=== PATIENT | male | born 1955 | race Hispanic/Latino ===

== ENCOUNTER 2020-12-23 07:25 | Day surgery (SDC) | payer OTHER ==
--- NOTE | 2020-12-21 13:14 | EKG ---
Test Date: 2020-12-20 Test Time: 12:22:14 Machine Chocolate Molder: STEVEN MEASUREMENT RESULTS: Intervals: Rate: 69 PA: 206 QRSD: 144 QT: 404 QTc: 432 [place]: P: 29 PA: 206 QRS: 90 T: 46 INTERPRETIVE STATEMENTS: Normal sinus rhythm Right bundle branch block Abnormal ECG No previous ECG available for comparison Electronically Signed On 12-21-20 13:10:40 CDT by Juan A Walker
[2020-12-23] MEDS ORDERED: NA CHLORIDE 0.9% 1,000 ML ONE ×2 (07:44→10:16)
[2020-12-23] MEDS ORDERED: OXYMETAZOLINE HCL 0.05% 15ML NAS ONE ×3 (07:44→10:36)
[2020-12-23] MEDS ORDERED: NA CHLORIDE 0.9% 500 ML ONE (08:15)
[2020-12-23] MEDS ORDERED: LIDOCAINE 1% W/EPI 1:100,000 MDV 20 ML VIAL ONE (08:15)
[2020-12-23] MEDS ORDERED: propofoL 200 MG/20 ML VIAL IV ONE (08:16)
[2020-12-23] MEDS ORDERED: GLYCOPYRROLATE 0.2 MG/ML SYR ONE ×2 (08:17)
[2020-12-23] MEDS ORDERED: LIDOCAINE 2% MPF 5 ML VIAL ONE (08:17)
[2020-12-23] MEDS ORDERED: MIDAZOLAM HCL 2 MG/2 ML INJ ONE (08:17)
[2020-12-23] MEDS ORDERED: FENTANYL CITR 250 MCG/5 ML ONE (08:18)
[2020-12-23] MEDS ORDERED: ROCURONIUM 50 MG/5 ML VIAL IV ONE (08:18)
[2020-12-23] MEDS ORDERED: ONDANSETRON 4 MG/2 ML VIAL ONE (08:23)
[2020-12-23] MEDS ORDERED: dexAMETHasone 10 MG/ML VIAL ONE (08:24)
[2020-12-23 08:27] VITALS: O2SAT 100
[2020-12-23] MEDS ORDERED: LIDOCAINE 1% MPF 5 ML VIAL ONE (12:25)
--- NOTE | 2020-12-23 12:44 | P.BOP ---
Preoperative diagnosis: Chronic ethmoid, maxillary and frontal sinusitis, septal deviation Postoperative diagnosis: same Primary procedure: septoplasty Secondary procedure: NE with B max, ethmoid, and right frontal BSP Grinding Wheel Dresser: NONE,NONE Estimated blood loss: 300ml Specimen: sinonasal trimmings Findings: diffuse and profuse oozing Anesthesia: General Implants: surgicel to B ethmoid, FloSeal to B ethmoid Fluids & blood products: 1500ml crystalloid Transferred to: Recovery Room Condition: Good
[2020-12-23] MEDS ORDERED: TRAMADOL HCL 50 MG TAB ONE (14:17)
[2020-12-23 15:14] VITALS: BP 160/89; TEMP 96.6
--- NOTE | 2020-12-23 16:26 | OP ---
Date of Procedure: 12/23/2020 Surgeon: Renuka Wen MD Preoperative Diagnoses: Chronic maxillary and ethmoid sinusitis, septal deviation, nasal obstruction , and severe headache. Postoperative Diagnoses: Chronic maxillary and ethmoid sinusitis, septal deviation, nasal obstructio n, and severe headache, greater than average bleeding. Indication For Procedure: Mr. Lester presented in 2019 with symptoms of chronic sinusitis. We disc ussed treatment options and he desired surgery, but his treatment was delayed due to the COVID pandem ic. He re-presented with severe right-sided headache. His sedimentation rate was within normal limi ts. We discussed that treatment for his nasal and sinus conditions was likely to rule out the sinuse s as a contributing factor, but it was unclear whether his pain was due to his sinuses or to other co morbid conditions. Description Of Procedure: The patient was brought to the operating room. He was placed under genera l anesthesia via oral endotracheal tube. The head of bed was turned 90 degrees. The [employer] system was loaded with patient's preoperative CT scan and registered according to fitness and wellness director in structions. The accuracy of the navigation was confirmed and was felt to be very good. The nasal ca vity was packed with Afrin-soaked pledgets. After time for effect, these were removed and the 0-degr ee endoscope used to perform a nasal endoscopy. The left middle turbinate was medialized and the unc inate process was removed using a backbiter and 90-degree Blakesley. The mucosa was significantly oo zy with greater than expected degree of bleeding. Afrin-soaked pledgets were packed in this area for several minutes to aid in hemostasis. Nasal endoscopy was performed on the right side, but the nasa l cavity was too narrow due to the degree of the septal deviation to allow for concurrent dissection. The pledgets were then removed from the left side and the maxillary antrostomy was created and dila daniel to put pressure on the mucosa and aid in control of bleeding. The ethmoid cells were then judici ously dissected using a curette and bony partitions were removed using a 45-degree Blakesley. The [employer] navigation pointer was used to confirm entry and dissection of the opacified cells noted on h is pretreatment CT scan. Afrin-soaked pledgets were packed into the ethmoid cavity to control bleedi ng and attention was turned to the septum. Using a headlight and nasal speculum, the septum was inje cted with 1% lidocaine with epinephrine. A left hemitransfixion incision was made and bilateral muco bety flaps were elevated. There was significant spurring on the right side resulting in a laceration of the mucosa. The bony and cartilaginous deviation were removed using heavy scissors, Elizabeth for ceps, and the Arik rongeur. The removed cartilage was carefully trimmed to a small flat portion fo r later placement between the septal flap. Once the septum was adequately repaired, attention was tu rned to the right side. The balloon dilation device was prepared in accordance with fitness and wellness director's i nstructions and directed through the right middle meatus through the frontal recess. Placement was c onfirmed by brilliant illumination of the recess and the frontal recess was dilated to provide compre ssion on the mucosa as well as aid in further dissection. The uncinate process was then removed. Th e maxillary antrostomy created using the 90-degree Blakesley backbiter and visualization under 30-deg ree endoscope. There was significant oozing from the right side as well, requiring intermittent pack ing with Afrin-soaked pledgets to aid in hemostasis. The ethmoid cells were carefully dissected and opened. The navigation suction was used to confirm entry into the opacified portions. Formal dissec tion of the frontal recess was not able to be performed due to the overall degree and profuse nature of the patient's oozing. Afrin-soaked packing was placed within the right ethmoid cavity and attenti on was turned back to the septum. The septal flaps were reapproximated using a running plain gut sut ure with a small piece of Surgicel placed between the septal flaps as it turns against further bleedi ng. All pledgets were removed. The count was confirmed as correct. The right ethmoid cavity was fi lled with 5 mL of FloSeal as a hemostatic agent. The left ethmoid cavity was packed with Surgicel an d then filled with FloSeal as a hemostatic agent. A decision was made to forego placement of Acosta s plints in interest of patient's comfort. The oropharynx was carefully examined using a headlight and a sweetheart retractor and there was no significant blood noted within the oropharynx or flowing fro m the nasopharynx. Overall, this procedure was significantly more difficult than expected and averag e. The anticipated duration of procedure was 2 hours, but due to the degree of bleeding, need for in termittent packing and additional interventions for control of bleeding, the duration exceeded 3-1/2 hours. Full dissection of the ethmoid was deferred in interest of limiting additional blood loss and avoidance of complications. DARREN/CHANDRIKA Voice ID: [id number] Report ID: [id number]
== END 2020-12-23 15:25 | disposition home or self-care (01) ==
LOC: OR 07:25
PROVIDERS: ATTEND Otolaryngology
PROC: 099R8ZZ Drainage of Left Maxillary Sinus, Via Natural or Artificial Opening Endoscopic (ICD-10-PCS; 2020-12-23)
PROC: 099Q8ZZ Drainage of Right Maxillary Sinus, Via Natural or Artificial Opening Endoscopic (ICD-10-PCS; 2020-12-23)
PROC: 09QS4ZZ Repair Right Frontal Sinus, Percutaneous Endoscopic Approach (ICD-10-PCS; 2020-12-23)
PROC: 09BM8ZZ Excision of Nasal Septum, Via Natural or Artificial Opening Endoscopic (ICD-10-PCS; principal; 2020-12-23 09:15)
DX: J32.0 Chronic maxillary sinusitis (principal); J32.2 Chronic ethmoidal sinusitis; J34.2 Deviated nasal septum; J34.89 Other specified disorders of nose and nasal sinuses; R51.9 Headache, unspecified; Z20.822 Contact with and (suspected) exposure to COVID-19
CPT/HCPCS: 30520; 31256; 31296; 93005; 82947 ×2; 88305; 88311; U0002; J2704; J2250; J3010; J7040; J7030 ×2; J2405; J1100

== ENCOUNTER 2020-12-30 19:19 | Observation (INO) | payer OTHER ==
[2020-12-30] MEDS ORDERED: NA CHLORIDE 0.9% 1,000 ML ONE ×2 (19:49→22:06)
[2020-12-30] MEDS ORDERED: TRANEXAMIC ACID 1,000 MG/10 ML VIAL IV ONE ×2 (19:59→20:07)
[2020-12-30 20:01] LABS: Absolute Lymphocytes (CBC) 3.2 K/uL (0.7-4.9); Basophils % 0.9 % (0-1.3); Hematocrit 42.1 % (39.6-49.0); Lymphocytes % 29.4 % (15.3-44.8); MPV 8.4 fL (7.6-11.3)
[2020-12-30] MEDS ORDERED: NA CHLORIDE 0.9% 50 ML ONE (20:10)
[2020-12-30] MEDS ORDERED: NA CHLORIDE 0.9% 250 ML ONE (20:15)
[2020-12-30 20:16] LABS: Potassium 4.3 mmol/L (3.5-5.1)
[2020-12-30] MEDS ORDERED: ONDANSETRON 4 MG/2 ML VIAL ONE (20:22)
[2020-12-30 20:34] LABS: Protime INR 1.09
--- NOTE | 2020-12-30 20:38 | EDPHYS ---
Physician Documentation [facility] Name: Robert Lester Jr Age: 65 yrs Sex: Male : 1955 Arrival Date: 12/30/2020 Time: 19:22 Bed 2 Private MD: ED Physician Arnold Gregory HPI: 12/30 19:46 This 65 yrs old Male presents to ER via Ambulatory with complaints of Post pkl Surgical Bleeding. 19:46 The patient presents with a nose bleed. Onset: The symptoms/episode began/occurred just pkl prior to arrival, 1 hour(s) ago. Patient had nose surgery [address] Wen. Nose started bleeding 1 hour ago.. Historical: - Allergies: 19:44 PENICILLINS; lp1 19:44 Keflex; lp1 - Home Meds: 19:44 Altace Oral [Active]; Trulicity subcutaneous [Active]; Humulin R Sub-Q [Active]; lp1 - PMHx: 19:44 Diabetes mellitus; Hypertensive disorder; lp1 - PSHx: 19:44 Sinus surgery; lp1 - Immunization history:: Adult Immunizations up to date. - Social history:: Smoking status: Patient denies any tobacco usage or history of. ROS: 19:46 Eyes: Negative for injury, pain, redness, and discharge. pkl 19:46 ENT: Positive for nose bleed. 19:46 Neck: Negative for stiffness. 19:46 Cardiovascular: Negative for chest pain. 19:46 Respiratory: Negative for cough, shortness of breath. 19:46 Abdomen/GI: Negative for abdominal pain, nausea, vomiting, and diarrhea. 19:46 Back: Negative for acute changes. 19:46 : Negative for urinary symptoms. 19:46 MS/extremity: Negative for acute changes. 19:46 Skin: Negative for rash. 19:46 Neuro: Negative for altered mental status, loss of consciousness. Exam: 19:46 Head/Face: Normocephalic, atraumatic. Eyes: Pupils equal round and reactive to light, pkl extra-ocular motions intact. Lids and lashes normal. Conjunctiva and sclera are non-icteric and not injected. Cornea within normal limits. Periorbital areas with no swelling, redness, or edema. 19:46 ENT: Nose: bleeding, is seen from the left nare, clotted blood, in left nare, Mouth: bleeding noted back of throat. 19:46 Neck: Exam negative for acute changes. 19:46 Chest/axilla: Exam negative for acute changes. 19:46 Cardiovascular: Rate: tachycardic, actual rate is 130 bpm, Rhythm: regular. 19:46 Respiratory: the patient does not display signs of respiratory distress, Respirations: normal, Breath sounds: are clear throughout. 19:46 Abdomen/GI: Bowel sounds: normal, Palpation: abdomen is soft and non-tender, in all quadrants. 19:46 Back: Exam negative for acute changes. 19:46 : Exam negative for acute changes. 19:46 Musculoskeletal/extremity: Exam is negative for acute changes. 19:46 Skin: Exam negative for rash. 19:46 Neuro: Orientation: is normal, Mentation: is normal, Cranial nerves: grossly normal, Motor: is normal. Vital Signs: 19:20 BP 121 / 102; Pulse 130; Resp 20; Temp 97.6(TE); Pulse Ox 97% on R/A; Weight 108.86 kg lp1 (R); Height 5 ft. 11 in. (180.34 cm); Pain 0/10; 19:55 BP 122 / 89; Pulse 115; Resp 20; Pulse Ox 97% on R/A; tw5 19:20 Body Mass Index 33.47 (108.86 kg, 180.34 cm) lp1 MDM: 19:31 Patient medically screened. pkl 20:35 Data reviewed: vital signs, nurses notes, lab test result(s). pkl 12/30 19:45 Order name: CBC with Diff; Complete Time: 20:03 pkl 12/30 19:45 Order name: Chem 7; Complete Time: 20:33 pkl 12/30 20:05 Order name: PT-INR pkl 12/30 20:05 Order name: Ptt, Activated pkl 12/30 20:06 Order name: Protime (+INR); Complete Time: 23:34 EDMS 12/30 20:06 Order name: PTT, Activated Partial Thromb; Complete Time: 23:34 EDMS 12/30 20:09 Order name: Type and Screen Tube method; Complete Time: 23:34 EDMS 12/30 20:45 Order name: Basic Metabolic Panel EDMS 12/30 20:45 Order name: Basic Metabolic Panel EDMS 12/30 20:45 Order name: CBC with Automated Diff EDMS 12/30 20:45 Order name: CBC with Automated Diff EDMS Administered Medications: 19:54 Drug: NS 0.9% 1000 ml Route: IV; Rate: 125 ml/hr; Site: left hand; tw5 19:55 Drug: NS 0.9% 500 ml Route: IV; Rate: bolus; Site: left hand; tw5 20:30 Follow up: IV Status: Completed infusion; IV Intake: 500ml em 20:13 Drug: Tranexamic Acid 1000 mg Route: IV; Rate: calculated rate; Site: left hand; em 20:23 Drug: Tranexamic Acid 1000 mg Route: IV; Rate: calculated rate; Site: left hand; em 20:27 Drug: Zofran (Ondansetron) 4 mg Route: IVP; Site: left hand; em Disposition Summary: 12/30/20 20:37 Hospitalization Ordered Hospitalization Status: Observation pkl Provider: Renuka Wen pkl Location: Telemetry/MedSurg (observation) pkl Condition: Stable pkl Problem: new pkl Symptoms: are unchanged pkl Bed/Room Type: Standard pkl Room Assignment: 222(12/30/20 21:15) Diagnosis - Nose bleed. S/P Sinus surgery pkl Forms: - Medication Reconciliation Form pkl - SBAR form pkl Signatures: Dispatcher [employer] EDArnold Martin MD MD pkl Timoteo Lam RN RN Maya Mcnulty RN RN [facility] Ginny Andres RN RN Alem Vallejo tw5 Corrections: (The following items were deleted from the chart) 20: 19:45 TYPE AND SCREEN+BB.LAB.BRZ ordered. EDOH EDMS 21:15 20:37 pkl cg
--- NOTE | 2020-12-30 20:38 | ER ---
Nurse's Notes [facility] Name: Robert Lester Jr Age: 65 yrs Sex: Male : 1955 Arrival Date: 12/30/2020 Time: 19:22 Bed 2 Private MD: Diagnosis: Nose bleed. S/P Sinus surgery Presentation: 12/30 19:20 Chief complaint: Patient states: Had sinus surgery by Dr. Wen on 12/23/2020. Reports lp1 an hour ago began having nose bleed from both nares and has not stopped. 19:20 Coronavirus screen: At this time, the client does not indicate any symptoms associated lp1 with coronavirus-19. Ebola Screen: No symptoms or risks identified at this time. Initial Sepsis Screen: Does the patient meet any 2 criteria? HR > 90 bpm. Does the patient have a suspected source of infection? No. Patient's initial sepsis screen is negative. Risk Assessment: Do you want to hurt yourself or someone else? Patient reports no desire to harm self or others. Onset of symptoms was December 30, 2020 at 18:00. 19:20 Method Of Arrival: Ambulatory lp1 19:20 Acuity: SHADIA 2 lp1 21:16 Note report given to surgery. Pt transported by bed to surgery. df1 Triage Assessment: 19:25 EENT: Nares with bleeding noted on left. lp1 Historical: - Allergies: 19:44 PENICILLINS; lp1 19:44 Keflex; lp1 - Home Meds: 19:44 Altace Oral [Active]; Trulicity subcutaneous [Active]; Humulin R Sub-Q [Active]; lp1 - PMHx: 19:44 Diabetes mellitus; Hypertensive disorder; lp1 - PSHx: 19:44 Sinus surgery; lp1 - Immunization history:: Adult Immunizations up to date. - Social history:: Smoking status: Patient denies any tobacco usage or history of. Screenin:46 Abuse screen: Denies threats or abuse. Denies injuries from another. Nutritional lp1 screening: No deficits noted. Tuberculosis screening: No symptoms or risk factors identified. Fall Risk None identified. Assessment: 19:46 General:. General: Reports Patient states that he had a procedure on his nose earlier tw5 this week, was suppose to go to a follow up appointment, but missed it. About an hour ago he started bleeding from his nose and it hasn't stopped. Patient currently holding a washcloth to his nose to stop the bleeding. Nose is currently to swollen to place a clamp on. 20:25 Reassessment: DR. Wen at bedside applying manual pressure to both nares, pt given em medication to help stop nose bleed, no change in condition, pt will be going to the OR, team will be called out, warehouse and receiving supervisor notified. Vital Signs: 19:20 BP 121 / 102; Pulse 130; Resp 20; Temp 97.6(TE); Pulse Ox 97% on R/A; Weight 108.86 kg lp1 (R); Height 5 ft. 11 in. (180.34 cm); Pain 0/10; 19:55 BP 122 / 89; Pulse 115; Resp 20; Pulse Ox 97% on R/A; tw5 19:20 Body Mass Index 33.47 (108.86 kg, 180.34 cm) lp1 ED Course: 19:22 Patient arrived in ED. bp1 19:31 Arnold Gregory MD is Attending Physician. pkl 19:44 Triage completed. lp1 19:44 Arm band placed on. lp1 19:46 Alem Vallejo is Primary Nurse. tw5 19:46 Resting quietly. Awaiting lab results, Awaiting private physician. tw5 19:46 Patient has correct armband on for positive identification. lp1 19:46 Initial lab(s) drawn, by ED staff, sent to lab. T\T\S collected, blood band applied to tw5 patient. Inserted saline lock: 20 gauge in right hand, using aseptic technique. Blood collected. 19:49 Chem 7 Sent. tw5 19:49 CBC with Diff Sent. tw5 20:25 Assist provider with nosebleed control using direct pressure, Bleeding from left nare. em Set up for procedure. Performed by Renuka Wen MD Bleeding continues Patient tolerated well. 20:36 Renuka Wen MD is Hospitalizing Provider. pkl Administered Medications: 19:54 Drug: NS 0.9% 1000 ml Route: IV; Rate: 125 ml/hr; Site: left hand; tw5 19:55 Drug: NS 0.9% 500 ml Route: IV; Rate: bolus; Site: left hand; tw5 20:30 Follow up: IV Status: Completed infusion; IV Intake: 500ml em 20:13 Drug: Tranexamic Acid 1000 mg Route: IV; Rate: calculated rate; Site: left hand; em 20:23 Drug: Tranexamic Acid 1000 mg Route: IV; Rate: calculated rate; Site: left hand; em 20:27 Drug: Zofran (Ondansetron) 4 mg Route: IVP; Site: left hand; em Intake: 20:30 IV: 500ml; Total: 500ml. em Outcome: 20:37 Decision to Hospitalize by Provider. pkl 21:17 Patient left the ED. df1 Signatures: Arnold Gregory MD MD pkl Timoteo Lam RN RN em Maya Mcnulty RN RN lp1 Yoanna Butt Dawn df1 Alem Vallejo tw5 Corrections: (The following items were deleted from the chart) 19:54 19:54 NS 0.9% 1000 ml IV at 125 ml/hr in right hand tw5 tw5 20:09 19:49 TYPE AND SCREEN+BB.LAB.BRZ drawn and sent. tw5 EDMS
[2020-12-30] MEDS: NA CHLORIDE 0.9% 1,000 ML IV SCH (21:00)
[2020-12-30] MEDS ORDERED: SUCCINYLCHOLINE 20 MG/ML (10 ML) IV ONE (21:20)
[2020-12-30] MEDS ORDERED: LIDOCAINE 1% W/EPI 1:100,000 10 ML VIAL ONE (21:45)
[2020-12-30] MEDS ORDERED: OXYMETAZOLINE HCL 0.05% 15ML NAS ONE (21:45)
[2020-12-30] MEDS ORDERED: EPINEPHRINE/PF 1 MG/ML AMP ONE (21:45)
[2020-12-30] MEDS ORDERED: propofoL 200 MG/20 ML VIAL IV ONE (22:19)
[2020-12-30] MEDS ORDERED: FENTANYL CITR 100 MCG/2 ML ONE (22:19)
[2020-12-30] MEDS ORDERED: ROCURONIUM 50 MG/5 ML VIAL IV ONE ×2 (22:19→23:20)
[2020-12-30] MEDS ORDERED: MIDAZOLAM HCL 2 MG/2 ML INJ ONE (22:19)
[2020-12-30] MEDS ORDERED: Phenylephrine HCl 10 MG/ML 1 ML VIAL ONE (23:48)
[2020-12-31] MEDS ORDERED: NEOSTIGMINE 1 MG/ML -5 ML ONE (00:06)
[2020-12-31] MEDS ORDERED: GLYCOPYRROLATE 0.2 MG/ML SYR ONE (00:06)
[2020-12-31] MEDS ORDERED: ONDANSETRON 4 MG/2 ML VIAL IV PRN (00:21)
[2020-12-31] MEDS ORDERED: ACETAMINOPHEN 500 MG TAB PO PRN (00:21)
[2020-12-31] MEDS ORDERED: D50W 25 GM/50 ML SYRINGE IV PRN (00:21)
[2020-12-31] MEDS ORDERED: GLUCAGON 1 MG/VIAL IM PRN (00:21)
--- NOTE | 2020-12-31 00:30 | P.BOP ---
Preoperative diagnosis: epistaxis Postoperative diagnosis: same Primary procedure: NE with control of nasal bleeding Beef Breaker: NONE,NONE Estimated blood loss: 30ml Specimen: none Findings: thick clot in L NC, MM, HARNESS INSPECTOR. Cautery of L SPA region Anesthesia: General Complications: None Implants: left ethmoid surgicel, B NC Xerogel Fluids & blood products: crystalloid 1L Transferred to: Recovery Room Condition: Good
[2020-12-31 01:17] VITALS: BMI 33.4
[2020-12-31 02:10] VITALS: O2SAT 98
[2020-12-31 04:42] LABS: Absolute Lymphocytes (CBC) 1.6 K/uL (0.7-4.9); Basophils % 0.6 % (0-1.3); Hematocrit 37.3 % (39.6-49.0); Lymphocytes % 13.1 % (15.3-44.8); MPV 8.4 fL (7.6-11.3); RBC Red Blood Cell Count 4.05 M/uL (4.33-5.43)
[2020-12-31 04:52] LABS: Potassium 4.5 mmol/L (3.5-5.1)
[2020-12-31] MEDS: NA CHLORIDE 0.9% 1,000 ML IV SCH (07:00)
[2020-12-31] MEDS ORDERED: INSULIN -REGULAR HUMAN 50 UNIT/0.5 ML ML SQ SCH ×2 (07:30)
[2020-12-31 08:55] VITALS: BP 118/77; TEMP 97.8
[2020-12-31] MEDS ORDERED: ramipriL 5 MG CAP PO SCH (09:00)
--- NOTE | 2020-12-31 09:45 | P.SSS ---
Patient History Date of Service: 12/30/20 Reason for admission: nasal hemorrhage History of Present Illness: POD 7 RAFAL Wen with sudden severe bleeding at home and presented to ER with large left nasal cavity clot and active bleeding around the clot and posteriorly into the oropharynx. He was treated with TXA and taken to the OR for EUA and control of bleeding. Due to severity of blood loss, he was placed under obs for monitoring of H/H Allergies cephalexin [From Keflex] Allergy (Verified 12/20/20 13:01) Hives Penicillins Allergy (Verified 12/20/20 13:01) Anaphylaxis Home medications list reviewed: Yes Home Medications: Atorvastatin Calcium [Lipitor] 20 mg PO DAILY 12/20/20 Dulaglutide [Trulicity] 4.5 mg SQ EVERY 7TH DAY 12/20/20 Empagliflozin/Metformin HCl [Synjardy Xr 12.5-1,000 mg Tab] 2 each PO DAILY 12/20/20 Insulin Regular, Human [Humulin R U-500 Kwikpen] 45 unit SQ SEECOM 12/20/20 Ramipril [Altace] 5 mg PO BID 12/20/20 Tadalafil [Cialis] 10 mg PO PRN PRN 12/20/20 - Past Medical/Surgical History Has patient received pneumonia vaccine in the past: Yes Diabetic: Yes -: HTN -: DM - Social History Smoking Status: Never smoker Alcohol use: No CD- Drugs: No Caffeine use: No Place of Residence: Home Physical Examination - Vital Signs Temperature: 97.8 F Blood Pressure: 118/77 Pulse: 106 Respirations: 18 Pulse Ox (%): 99 - Physical Exam General: Alert, In no apparent distress, Oriented x3 HEENT: Atraumatic, Normocephalic, Other (Xerogel in B NC, dry and white. No sign of additional bleeding.) Neurological: Normal speech - Studies 12/30/20 20:15: ABO/Rh O POSITIVE 12/30/20 20:15: PT 12.5, INR 1.09, APTT 30.8 12/30/20 20:15: ABO/Rh O POSITIVE, Ab Screen Tube Method Negative, Solid Phase Ab Screen Cancelled 12/30/20 19:50: Sodium 136, Potassium 4.3, Chloride 104, Carbon Dioxide 23, BUN 23 H, Creatinine 1.13, Estimated GFR 65 L, Glucose 199 H, Calcium 9.3 12/30/20 19:45: WBC 11.00 H, RBC 4.60, Hgb 14.2, Hct 42.1, MCV 91.5, MCH 30.8, MCHC 33.6, RDW 13.6, Plt Count 327, MPV 8.4, Neutrophils % 60.6, Lymphocytes % 29.4, Monocytes % 5.9, Eosinophils % 3.2, Basophils % 0.9, Absolute Neutrophils 6.7, Absolute Lymphocytes 3.2, Absolute Monocytes 0.6, Absolute Eosinophils 0.3, Absolute Basophils 0.1 12/31/2020: Hgb 12.3 Treatment Summary: After surgery, the patient did well and was deemed appropriate for discharge home - Disposition Discharge Date: 12/31/20 Disposition: ROUTINE DISCHARGE Condition: GOOD Patient Discharge Instructions: Nasal precautions, no lifting/bending/nose blowing. Resume saline irrigations on Saturday. Diet: ADA Activity: No lifting more than 10 lbs
--- NOTE | 2020-12-31 10:03 | OP ---
Date of Procedure: 12/30/2020 Surgeon: Renuka Wen MD Preoperative Diagnosis: Epistaxis, Acute posthemorrhagic anemia. Postoperative Diagnosis: Epistaxis, Acute posthemorrhagic anemia. Procedure: Nasal endoscopy with control of epistaxis. Indication For Procedure: Mr. Lester underwent bilateral maxillary and ethmoid sinus surgery on December 23. During his initial procedure, he had excessive degree of oozing diffusely from his mucosa with prolonged procedural time and complexity. His nasal cavities were packed with disposable hemostatic agents at the time of his surgery and his initial postoperative course was unremarkable. He was doing well with regard to his postoperative course until early evening on December 30, when he suddenly had a large amount of blood come from the nose. He did not recall any trauma, nose bleeding, or increased pressure as a triggering event, but the bleeding was severe and he presented to the emergency room for evaluation. In the emergency room, the left nasal cavity was completely occluded with a large clot around which he continued to have significant oozing that was not controlled with external nasal pressure. He was treated with IV tranexamic acid and a decision was made to proceed with operative intervention for evaluation, evacuation of clot, and control of nasal hemorrhage. Description Of Procedure In Detail: The patient was brought to the operating room. He was placed under general anesthesia via oral endotracheal tube. The head of bed was turned to 90 degrees, and the patient was draped in a standard fashion for nasal surgery. The 0-degree endoscope was used to perform a nasal endoscopy on the right side. The nasal cavity overall was noted to be significantly edematous. There was a small amount of clot and blood with mild mucosal oozing along the inferior turbinates, but the right nasal cavity overall appeared to be filled with old Gel-Foam. This was partially removed, but not completely evacuated as the right side did not appear to be acutely involved in regard to the degree of bleeding and was felt to be unlikely the main source of his issues. Attention was then turned to the neuro sponge soaked with Afrin and epinephrine was placed within the right nasal cavity in order to assist in hemostasis along the raw mucosal surfaces. Attention was then turned to the left side. Judicious removal of clots sequentially using Bayonet forceps, suction, and a Blakesley forceps was performed. The clot was difficult to remove and was removed layer by layer working from an anterior to posterior direction. There was mild mucosal oozing in the areas of tissue trauma during the procedure, but overall no discrete or pulsatile bleeding was noted. No major active bleeding was noted other than mucosal oozing over repeated interventions. The nasal cavity and sinuses were evacuated from all active clot until the nasopharynx, the superior meatus, and the middle meatus and ethmoid cavity were well visualized. There was residual FloSeal within the ethmoid cavity, which was judiciously suctioned. There was clot coming through the maxillary antrostomy, which was judiciously suctioned. Again, no discrete bleeding source was identified though cauterization was performed in the area of the sphenopalatine area as this was felt to be a likely source for his initial bleeding event. The middle meatus was then packed with a 3 x 4 cm portion of Surgicel in order to aid in continued hemostasis. A Xerogel resorbable hemostatic nasal dressing was then placed within the bilateral nasal cavity between the septum and the inferior turbinate again in order to aid in hemostasis along some of those raw mucosal edges. The procedure was concluded and the patient was returned to care of Anesthesia for awakening and extubation in the operating room, which proceeded without difficulty. Complications: None. Estimated Blood Loss: 30 mL of clot was evacuated, though no significant active bleeding was identified. Disposition: Due to the late hour and the severity of the patient's presentation, decision was made to place the patient under observation overnight and re-evaluation of his anemia or risk of development of anemia and control of hypertension. DARREN/CHANDRIKA Voice ID: [id number] Report ID: [id number] RAFY
[2020-12-31] MEDS ORDERED: ATORVASTATIN 20 MG TAB PO SCH (21:00)
--- OUTSIDE RECORDS SUMMARY | 2020-12-31 23:15 | XMS REPORT | Continuity of Care Document ---
:1955 Author Organization [facility] t Address [address] [place] [address] Care Team Providers Name Role Phone Lucía GREER, Sylvia Parada Primary Care Physician Xavier Attending Clinician Unavailable Nurse, Db [facility] Attending Clinician Unavailable Ramsey ZENG Attending Clinician RAMSEY Attending Clinician Unavailable Nurse, Pob Immunization Attending Clinician Unavailable Pablo Santos DO Attending Clinician Davis Whyte Attending Clinician Davis ROBINS Attending Clinician Unavailable Felicita MORIN Attending Clinician Unavailable SONIA FUENTES Attending Clinician Unavailable Xavier Admitting Clinician Unavailable Payers Payer Name Policy Type Policy Number Effective Date Expiration Date S ours[place]antha [id number] 2018 00:00:00 BCBS [facility] [id number] 2008 00:00:00 Problems Condition Condition Condition Status Onset Resolution Last Treating Co mments Source Name Details Category Date Date Treatment Clinician Date Sinus Sinus Disease Active Univers pressure pressure 9-30 ity of 00:00: [place] 00 Medical Branch Body mass Body Mass Problem Active Norma lencho index 30+ Index 30+ 8-06 Fami ly - obesity - Obesity 00:00: Prac tic 00 e Type 2 Type 2 Problem Active [facility] diabetes Diabetes 5-05 Family mellitus Mellitus 00:00: Practi c 00 e Type 2 Type 2 Problem Active 2018-02 [facility] diabetes Diabetes 1-16 Family mellitus Mellitus 00:00: Practi c without without 00 e complicati Complicati on on Essential Essential Problem Active Norma musa hypertensi Hypertensi 1-16 Fa suraj on on 00:00: Practic 00 e Clinical Clinical Problem Active Kenneth ge finding Finding 1-16 Family 00:00: Practic 00 e Ulnar Ulnar Problem Active 2017-02 [facility] nerve Nerve 0-16 Family entrapment Entrapment 00:00: Pr actic at elbow at Elbow 00 e Primary Primary Problem Active 2017-02 [facility] erectile Erectile 0-16 Family dysfunctio Dysfunctio 00:00: Pr actic n n 00 e Impotence Impotence Problem Active 2017-02 Norma lencho 0-16 Family 00:00: Practic 00 e Hypertensi Hypertensi Problem Active 2017-02 [facility] ve ve 0-16 Family disorder Disorder 00:00: Practi c 00 e Finding of Finding of Problem Active 2017-02 [facility] upper limb Upper Limb 0-16 Fa suraj 00:00: Practic 00 e Hyperlipid Hyperlipid Problem Active 2016-02 [facility] emia emia 0-03 Family 00:00: Practic 00 e Obesity Obesity Problem Active 2016-02 [facility] 0-03 Family 00:00: Practic 00 e General General Problem Active 2016-02 [facility] finding of Finding of 0-03 Fa suraj observatio Observatio 00:00: Pr actic n of n of 00 e patient Patient Allergies, Adverse Reactions, Alerts Allergy Allergy Status Severity Reaction(s) Onset Inactive Treating Comm ents Source Name Type Date Date Clinician Cephalex Propensi Active Hives Univer s in ty to 6-12 ity of adverse 00:00: [place] reaction 00 Medical s Branch Penicill Propensi Active Anaphylaxis 2017 U nivers in ty to 6-12 ity of adverse 00:00: [place] reaction 00 Medical s Branch CEPHALEX DRUG Active Hives Univers IN INGREDI 6-12 ity of 00:00: [place] 00 Medical Branch PENICILL DRUG Active Anaphylaxis Uni vers IN INGREDI 6-12 ity of 00:00: [place] 00 Medical Branch Keflex Allergy Active Hives [facility] to Family substanc Practic e e Penicill Allergy Active Anaphylaxis Vi llage in g to Family substanc Practic e e PENICILL Allergy Active Anaphylaxis Vi llage IN G to Family POTASSIU substanc Practi c M e e Social History Social Habit Start Date Stop Date Quantity Comments Source Exposure to Not sure [facility] SARS-CoV-2 (event) Medica l Branch History [facility] o f [place] Alcohol Frequency Medical Branch History [facility] University o f [place] Alcohol Std Drinks Medica l Branch History [facility] o f [place] Alcohol Binge Medical Bra [facility] Alcohol intake 2020-12-30 2020-12-30 .43 /d [facility] 00:00:00 00:00:00 Medical Branch Alcohol Comment 2020-12-30 2020-12-30 social [facility] 00:00:00 00:00:00 Medical Branch Tobacco use and 2016-07-30 2016-07-30 Never used [facility] exposure 00:00:00 00:00:00 Medical Branch Sex [birth year] [facility] 00:00:00 00:00:00 Medical Branch Smoking Status Start Date Stop Date Source Former Smoker [facility] P gordon Medications Ordered Filled Start Stop Current Ordering Indication Dosage Frequency Signature Comments Components Source Medication Medication Date Date Medication? Clinician (SIG) Name Name tadalafiL Yes 20mg Take 20 mg Un abbey 20 mg 9-30 by mouth ity of tablet 08:40: as needed [place] [id number] for Medical Erectile Branch dysfunctio n. tadalafiL Yes 20mg Take 20 mg Un abbey 20 mg 9-30 by mouth ity of tablet 08:40: as needed [place] [id number] for Medical Erectile Branch dysfunctio n. tadalafiL Yes 20mg Take 20 mg Un abbey 20 mg 9-30 by mouth ity of tablet 08:40: as needed [place] [address] for Medical Erectile Branch dysfunctio n. methylPREDN 2020- No [id number] Take by Univers ISolone 15 09-30 mouth ity of (MEDROL, 00:00: 00:00 SEE-INSTRU Te xaerika VILMA,) 4 mg 00 :00 CTIONS. Medica l tablets follow Branch package directions fluticasone Yes [id number] Use 1-2 Univers propionate 9-08 sprays in ity of 50 00:00: each [place] mcg/actuati 00 nostril Medic al on nasal daily Branch spray fluticasone Yes [id number] Use 1-2 Univers propionate -08 sprays in ity of 50 00:00: each [place] mcg/actuati 00 nostril Medic al on nasal daily Branch spray fluticasone 0 Yes [id number] Use 1-2 Univers propionate -08 sprays in ity of 50 00:00: each [place] mcg/actuati 00 nostril Medic al on nasal daily Branch spray azithromyci 2021- No [id number] 250mg Take 1 Univers n 250 mg 10-26 09-30 tablet by ity o f tablet 00:00: 00:00 mouth [place] 00 :00 daily. Medical Take 500 Branch mg day 1, then 250 mg days 2 to 5. atorvastati Yes 20mg Take 20 mg Univers n 20 mg 02 by mouth ity of tablet 00:00: daily. [place] [facility] atorvastati Yes 20mg Take 20 mg Univers n 20 mg 10-20 by mouth ity of tablet 00:00: daily. [place] [facility] atorvastati Yes 20mg Take 20 mg Univers n 20 mg 10-20 by mouth ity of tablet 00:00: daily. [place] [facility] traMADoL 50 Yes TAKE 1 Univ ers mg tablet 7-28 TABLET BY ity o f 00:00: MOUTH [place] 00 EVERY 6 Medical HOURS Branch NEEDED. traMADoL 50 Yes TAKE 1 Univ ers mg tablet 7-28 TABLET BY ity o f 00:00: MOUTH [place] 00 EVERY 6 Medical HOURS Branch NEEDED. traMADoL 50 Yes TAKE 1 Univ ers mg tablet 7-28 TABLET BY ity o f 00:00: MOUTH [place] 00 EVERY 6 Medical HOURS Branch NEEDED. SYNJARDY XR Yes TAKE 2 Univ ers 12.5-1,000 5-12 TABLETS BY ity of mg TBph 00:00: MOUTH ONCE [place] 00 DAILY IN Medical THE Branch MORNING SYNJARDY XR 0 Yes TAKE 2 Univ ers 12.5-1,000 5-12 TABLETS BY ity of mg TBph 00:00: MOUTH [place]CE [place] 00 DAILY IN Medical THE Branch MORNING SYNJARDY XR Yes TAKE 2 Univ ers 12.5-1,000 5-12 TABLETS BY ity of mg TBph 00:00: MOUTH ONCE [place] 00 DAILY IN Medical THE Branch MORNING TRULICITY Yes INJECT 1 Univ ers 4.5 mg/0.5 5-05 SYRINGE ity of mL PnIj 00:00: (4.5 MG) ONCE A Medical WEEK Branch TRULICITY Yes INJECT 1 Univ ers 4.5 mg/0.5 5-05 SYRINGE ity of mL PnIj 00:00: (4.5 MG) ONCE A Medical WEEK Branch TRULICITY Yes INJECT 1 Univ ers 4.5 mg/0.5 5-05 SYRINGE ity of mL PnIj 00:00: (4.5 MG) ONCE A Medical WEEK Branch ramipril 5 Yes [id number] 5mg Take 5 mg Univers mg capsule 5-31 by mouth ity o f 00:00: daily. [place] [facility] ramipril 5 Yes [id number] 5mg Take 5 mg Univers mg capsule 5-31 by mouth ity o f 00:00: daily. [place] [facility] ramipril 5 Yes [id number] 5mg Take 5 mg Univers mg capsule 5-31 by mouth ity o f 00:00: daily. [place] [facility] HUMULIN R Yes [id number] Uni vers U-500, 5-17 ity of CONC, 00:00: [place] KWIKPEN 500 00 Medical unit/mL (3 Branch mL) InPn HUMULIN R Yes [id number] Uni vers U-500, 5-17 ity of CONC, 00:00: [place] KWIKPEN 500 00 Medical unit/mL (3 Branch mL) InPn HUMULIN R Yes [id number] Uni vers U-500, 5-17 ity of CONC, 00:00: [place] KWIKPEN 500 00 Medical unit/mL (3 Branch mL) InPn atorvastati 2020- No [id number] 10mg Take 10 mg Univers n 10 mg -30 by mouth ity of tablet 00:00: 00:00 daily. [place] 00 :00 Medical Branch atorvastati atorvastati No atorvastat [facility] n 20 mg n 20 mg in 20 mg Famil y tablet TAKE tablet TAKE tablet Practic 1 TABLET BY 1 TABLET BY TAKE 1 e MOUTH ONCE MOUTH ONCE TABLET BY DAILY DAILY MOUTH ONCE DAILY Humulin R Humulin R No Humulin R [facility] U-500 U-500 U-500 Family (Conc) (Conc) (Conc) Practic Insulin Insulin Insulin e Kwikpen 500 Kwikpen 500 Kwikpen unit/mL (3 unit/mL (3 500 mL) mL) unit/mL (3 subcutaneou subcutaneou mL) s INJECT 45 s INJECT 45 subcutaneo UNITS UNITS us INJECT SUBCUTANEOU SUBCUTANEOU 45 UNITS SLY IN THE SLY IN THE SUBCUTANEO MORNING AND MORNING AND USLY IN 65 UNITS IN 65 UNITS IN THE THE EVENING THE EVENING MORNING INCREASE INCREASE AND 65 DIRECTED DIRECTED UNITS IN TOTAL DAILY TOTAL DAILY THE DOSE 140 DOSE 140 EVENING UNITS UNITS INCREASE DIRECTED TOTAL DAILY DOSE 140 UNITS ramipril 5 ramipril 5 No ramipril 5 Village mg capsule mg capsule mg capsule Family TAKE 1 TAKE 1 TAKE 1 Practic CAPSULE BY CAPSULE BY CAPSULE BY e MOUTH TWICE MOUTH TWICE MOUTH DAILY STOP DAILY STOP TWICE LOSARTAN LOSARTAN DAILY STOP LOSARTAN Synjardy XR Synjardy XR No Synjardy [facility] 12.5 12.5 XR 12.5 Family mg-1,000 mg mg-1,000 mg mg-1,000 Practic tablet, tablet, mg tablet, e extended extended extended release release release TAKE 2 TAKE 2 TAKE 2 TABLETS BY TABLETS BY TABLETS BY MOUTH ONCE MOUTH ONCE MOUTH ONCE DAILY IN DAILY IN DAILY IN THE MORNING THE MORNING THE MORNING tadalafil tadalafil No tadalafil [facility] 20 mg 20 mg 20 mg Family tablet one tablet one tablet one Practic tab every tab every tab every e three days three days three days as needed as needed as needed tramadol 50 tramadol 50 No tramadol Village mg tablet mg tablet 50 mg Fami ly TAKE 1 TAKE 1 tablet Practic TABLET BY TABLET BY TAKE 1 e MOUTH EVERY MOUTH EVERY TABLET BY 6 HOURS 6 HOURS MOUTH NEEDED. NEEDED. EVERY 6 HOURS NEEDED. Trulicity Trulicity No Trulicity [facility] 4.5 mg/0.5 4.5 mg/0.5 4.5 mg/0.5 Family mL mL mL Practic subcutaneou subcutaneou subcutaneo e s pen s pen us pen injector injector injector INJECT 1 INJECT 1 INJECT 1 SYRINGE SYRINGE SYRINGE (4.5 MG) (4.5 MG) (4.5 MG) ONCE A WEEK ONCE A WEEK ONCE A WEEK Immunizations Ordered Filled Immunization Date Status Comments [facility] e Immunization Name Name SARS-COV-2 COVID-19 2020-12-14 Completed Unive rsity of MODERNA BOOSTER 00:00[facility] Branch SARS-COV-2 COVID-19 2020-12-14 Completed Unive rsity of MODERNA BOOSTER 00:00:00 [facility] VACCINE Branch SARS-COV-2 COVID-19 2020-04-24 Completed Unive rsity of MODERNA VACCINE 00:00:00 [facility] SARS-COV-2 COVID-19 2020-04-24 Completed Unive rsity of MODERNA VACCINE 00:00:00 [facility] SARS-COV-2 COVID-19 2020-04-24 Completed Unive rsity of MODERNA VACCINE 00:00:00 [facility] SARS-COV-2 COVID-19 2020-03-27 Completed Unive rsity of MODERNA VACCINE 00:00:00 [facility] SARS-COV-2 COVID-19 2020-03-27 Completed Unive rsity of MODERNA VACCINE 00:00:00 [facility] SARS-COV-2 COVID-19 2020-03-27 Completed Unive rsity of MODERNA VACCINE 00:00:00 [facility] COVID-19, mRNA, COVID-19, mRNA, 2020-02-19 Completed Vill age Family LNP-S, PF, 30 LNP-S, PF, 30 00:00:00 Practice mcg/0.3 mL dose mcg/0.3 mL dose Influenza Virus 2018-12-01 Completed Universit y of Vaccine Quad .5 mL 00:00:00 [facility] 6+ MO Branch Influenza Virus 2018-12-01 Completed Universit y of Vaccine Quad .5 mL 00:00:00 [facility] IM 6+ MO Branch Influenza Virus 2018-12-01 Completed Universit y of Vaccine Quad .5 mL 00:00:00 [facility] 6+ MO Branch Influenza Virus 2017-11-27 Completed Universit y of Vaccine 00:00:00 [facility] Influenza Virus 2017-11-27 Completed Universit y of Vaccine 00:00:00 [facility] Influenza Virus 2017-11-27 Completed Universit y of Vaccine 00:00:00 [facility] TDAP 2016-08-03 Completed University of 00:00:00 [facility] Branch Zoster(Zostavax)( 2016-08-03 Completed Unive rsity of ingles) 00:00:00 [facility] TDAP 2016-08-03 Completed University of 00:00:00 [facility] Branch Zoster(Zostavax)( 2016-08-03 Completed Unive rsity of ingles) 00:00:00 [facility] TDAP 2016-08-03 Completed University of 00:00:00 [facility] Zoster(Zostavax)( 2016-08-03 Completed Unive rsity of ingles) 00:00:00 [facility] Pneumococcal 2012-10-08 Completed University o f Polysaccharide, 00:00:00 [place] Med ical PPSV23 (PNEUMOVAX) Branch Pneumococcal 2012-10-08 Completed University o f Polysaccharide, 00:00:00 [place] Med ical PPSV23 (PNEUMOVAX) Branch Pneumococcal 2012-10-08 Completed [place] o f Polysaccharide, 00:00:00 [facility] ical PPSV23 (PNEUMOVAX) Branch Vital Signs Vital Name Observation Time Observation Value Comments Source Systolic blood 2020-12-31 00:53:00 130 mm[Hg] Univer sity of pressure [facility] Diastolic blood 2020-12-31 00:53:00 89 mm[Hg] Unive rsity of pressure [facility] Heart rate 2020-12-31 00:53:00 115 /min [facility] Body temperature 2020-12-31 00:51:00 36.83 [facility]ima [facility] 2020-12-31 00:51:00 20 /min [facility] Body height 2020-12-31 00:51:00 180.3 cm [facility] Body weight 2020-12-31 00:51:00 107.502 kg [facility] BMI 2020-12-31 00:51:00 33.05 kg/m2 [facility] Oxygen saturation in 2020-12-31 00:51:00 100 /min University of Arterial blood by [facility] Pulse oximetry Branch Systolic blood 2020-11-17 13:39:00 112 mm[Hg] Univer sity of pressure [facility] Diastolic blood 2020-11-17 13:39:00 77 mm[Hg] Unive rsity of pressure [facility] Heart rate 2020-11-17 13:39:00 77 /min Universi ty of [facility] Body temperature 2020-11-17 13:39:00 36.5 Rima Univ ersity of [facility] Body height 2020-11-17 13:39:00 180.3 cm Universi ty of [place] [facility] [place] Body weight 2020-11-17 13:39:00 110.451 kg Universi ty of [facility] BMI 2020-11-17 13:39:00 33.96 kg/m2 Universi ty [facility] Oxygen saturation in 2020-11-17 13:39:00 99 /min University of Arterial blood by [facility] Pulse oximetry Branch BP Diastolic 2020-09-23 00:00:00 76 mm[Hg] [facility] Height 2020-09-23 00:00:00 71 [in_i] [facility] BMI (Body Mass 2020-09-23 00:00:00 33.6 kg/m2 [facility] Family Index) Practice BP Systolic 2020-09-23 00:00:00 112 mm[Hg] [facility] Body Weight 2020-09-23 00:00:00 240.6 [lb_av] [facility] BP Diastolic 2020-06-22 00:00:00 75 mm[Hg] [facility] Height 2020-06-22 00:00:00 71 [in_i] [facility] BMI (Body Mass 2020-06-22 00:00:00 33.9 kg/m2 [facility] Index) Practice BP Systolic 2020-06-22 00:00:00 106 mm[Hg] [facility] Body Weight 2020-06-22 00:00:00 243 [lb_av] [facility] BP Diastolic 2020-03-24 00:00:00 73 mm[Hg] [facility] Height 2020-03-24 00:00:00 71 [in_i] [facility] BMI (Body Mass 2020-03-24 00:00:00 33.8 kg/m2 [facility] e Family Index) Practice BP Systolic 2020-03-24 00:00:00 109 mm[Hg] [facility] Practice Body Weight 2020-03-24 00:00:00 242 [lb_av] [facility] Practice BP Diastolic 2019-12-23 00:00:00 82 mm[Hg] [facility] Height 2019-12-23 00:00:00 71 [in_i] [facility] Practice BMI (Body Mass 2019-12-23 00:00:00 33.4 kg/m2 [facility] e Family Index) Practice BP Systolic 2019-12-23 00:00:00 118 mm[Hg] [facility] Body Weight 2019-12-23 00:00:00 239.4 [lb_av] [facility] Procedures Procedure Date / Time Performing Clinician Source Performed SARS-COV-2 COVID-19 2020-12-14 13:29:35 Doctor Unassigned, No Un iversity of [place] VACCINE Name Medical Branch BOOSTER,0.25ML,IM (MODERNA) Release of Trigger 2019-08-19 00:00:00 [facility] Arabella irizarry [facility] Oral Surgery Procedure 2016-10-19 00:00:00 [facility] Colonoscopy 2012-02-19 00:00:00 [facility] Dahlia ly Practice Procedure on Ankle [facility] Famil y Practice Plan of Care Planned Activity Planned Date Details Comments Source Diagnostic Test 2020-09-23 glucose, Hank Villagomez ly Pending 00:00:00 fingerstick, blood Practice [code = glucose, fingerstick, blood] Encounters Start End Encounter Admission Attending Care Care Encounter Source Date/Time Date/Time Type Type Clinicians Facility Department ID 2020-12-31 Outpatient Daniel_T VFP VFP [id number] [facility] 22:06:44 [id number] Family Practic e 2020-12-31 Outpatient Daniel_T VFP VFP [id number] [facility] 03:23:38 [id number] Family Practic e 2020-12-30 Outpatient Daniel_T VFP VFP [id number] [facility] 19:39:55 [id number] Family Practic e 2020-12-30 Outpatient Daniel_T VFP VFP [id number] [facility] 19:12:23 [id number] Family Practic e 2020-12-30 Outpatient Daniel_T VFP VFP [id number] [facility] 19:05:37 [id number] Family Practic e 2020-12-30 Outpatient Yury_T VFP VFP [id number] [facility] 18:46:53 [id number] Family Practic e 2020-12-30 2020-12-30 [facility] [id number] Univers 18:47:45 19:07:45 Visit Magda Lowe [id number] ity [facility] [id number] Paras as TIMO?BLEA [id number] Mt ih CARRIZALESBELKIS [address] [facility] OFFICE [facility] 2020-12-30 2020-12-30 Outpatient R [facility] [id number] Univers 19:00:00 19:00:00 [id number] [facility] 2020-12-30 2020-12-30 [facility] [id number] Univers 19:00:00 19:00:00 [facility] 2020-12-14 2020-12-14 Outpatient [facility] [id number] Univers 08:30:00 08:30:00 [facility] 2020-12-14 2020-12-14 Imm/Inj Nurse, Juan Miguel Pob Immunization [facility] [id number] Univers 08:27:22 08:28:15 Visit Jace Santos [id number] ity [place] [id number] [place] [phone] [place] [address] [facility] 2020-11-17 2020-11-17 [facility] [id number] Univers 08:26:59 09:14:52 Visit Martha Cannon [facility] [id number] i ty of [place] [id number] Paras as Timo?Blea [phone] Mt hi vanceey 044 [facility] Office [facility] 2020-11-17 2020-11-17 [facility] [id number] Univers 08:30:00 08:30:00 MARTHA [id number] [facility] 2020-11-17 2020-11-17 Outpatient Rene ROBINS [facility] [id number] Univers 08:30:00 08:30:00 MARTHA [facility] 2020-11-02 2020-11-02 Outpatient JULIENNE [facility] [id number] Univers 07:30:00 07:30:00 MARTHA [id number] [facility] 2020-11-02 2020-11-02 Outpatient Rene ROBINS [facility] [id number] Univers 07:30:00 07:30:00 MARTHA [facility] 2020-10-26 2020-10-26 Outpatient Rene JULIENNE [facility] [id number] Univers 15:30:00 15:30:00 MARTHA [id number] [facility] 2020-10-26 2020-10-26 Outpatient [facility] [id number] Univers 15:30:00 15:30:00 MARTHA [facility] 2020-09-28 2020-09-28 Outpatient [facility] [id number] Univers 13:00:00 13:00:00 MARTY [id number] [facility] 2020-09-28 2020-09-28 Outpatient [facility] [id number] Univers 13:00:00 13:00:00 MARTY [facility] 2020-09-23 2020-09-23 Aldo [facility] - [id number] V illage 00:00:00 00:00:00 Mindy [facility] - Practi luis m GREER: [id number] VM_HOU_Shakaylen e [address] [facility], [address], [place] [address] , Ph. 2020-09-14 2020-09-14 Outpatient Rene MORIN [facility] NUT [id number] Univers 00:00:00 00:00:00 MARTY [facility] 2020-09-08 2020-09-08 [facility] [id number] Univers 09:00:00 09:00:00 MARTY [id number] [facility] 2020-09-08 2020-09-08 Outpatient Rene MORIN, [facility] [id number] Univers 09:00:00 09:00:00 MARTY [facility] 2020-08-26 2020-08-26 [facility] [id number] Univers 08:15:00 08:15:00 MARTY [id number] [facility] 2020-07-29 2020-07-29 Outpatient Rene FUENTES, [facility] [id number] Univers 15:30:00 15:30:00 SYLVIA [id number] [facility] 2020-07-29 2020-07-29 Outpatient Rene FUENTES, [facility] [id number] Univers 15:30:00 15:30:00 SYLVIA [facility] 2020-06-22 2020-06-22 Aldo VFP [place] - [id number] V illage 00:00:00 00:00:00 Mindy [facility] Medical - Practi luis m GREER: [id number] JOSR_Cody tidwell [address] [facility], [address], [place] [address] , Ph. 2020-04-24 2020-04-24 Outpatient [facility] [id number] Univers 08:25:00 08:25:00 [facility] 2020-03-27 2020-03-27 Outpatient [facility] [id number] Univers 08:10:00 08:10:00 [facility] 2020-03-24 2020-03-24 Aldo VFP [place] - [id number] V illage 00:00:00 00:00:00 Mindy CottonChacorta - Pracike asencio MD: [id number] Sue tidwell [address], [place] [address] , Ph. 2019-12-23 2019-12-23 Aldo MACKP [place] - [id number] V illage 00:00:00 00:00:00 Mindy Truongel, Medical - Pracike asencio MD: [id number] VM_HOU_Alexi tidwell [facility], [address] [address] , Ph. Results This patient has no known results.
== END 2020-12-31 10:36 | disposition home or self-care (01) ==
LOC: ER 19:19 → ERHOLD 20:57 → 2ND 21:47
PROVIDERS: ADMIT Otolaryngology; ATTEND Otolaryngology
PROC: 093K8ZZ Control Bleeding in Nasal Mucosa and Soft Tissue, Via Natural or Artificial Opening Endoscopic (ICD-10-PCS; principal; 2020-12-30 22:00)
DX: R04.0 Epistaxis (principal); R00.0 Tachycardia, unspecified
CPT/HCPCS: 96361; 85025 ×2; 80048 ×2; 36415; 86900; 86850; 85610; 86901; 82947 ×3; 85730; 96375; 96374; 99284; 31238; 31231; J2704; J0171; J0330; J2370; J2250; J3010; J2710; J7050; J7030 ×2; J2405; G0378 ×2